=== PATIENT | male | born 2000 | race Caucasian/White ===

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

== ENCOUNTER 2021-03-12 12:33 | Emergency (ER) | payer OTHER ==
[2021-03-12 13:09] VITALS: BP 145/88; PULSE 81; RESP 18; TEMP 99.4
--- NOTE | 2021-03-12 14:13 | ED ---
URI HPI - General Chief Complaint: Upper Respiratory Infection Stated Complaint: fever, nausea Time Seen by Provider: 03/12/21 14:06 Source: patient, RN notes reviewed Mode of arrival: ambulatory Limitations: no limitations - History of Present Illness Initial Comments: Patient is a 20-year-old male that presents to the emergency department complaining of upper respiratory tract symptoms for the past several days. He notes he came to the ER to get Covid test. He was otherwise well-appearing. He denied any issues or complaints. He denied chest pain first breath headache vomiting diarrhea constipation fever fatigue chills. - Related Data Home Medications Medication Instructions Recorded Confirmed Ibuprofen [Motrin Ib] 400 mg PO Q6H PRN 11/29/17 11/29/17 Naproxen Sodium [Aleve] 220 mg PO DAILY 11/29/17 11/29/17 Previous Rx's Medication Instructions Recorded Penicillin V Potassium [Pen Vee K] 500 mg PO BID 10 Days #20 tablet 11/29/17 Allergies Allergy/AdvReac Type Severity Reaction Status Date / Time No Known Allergies Allergy Verified 03/12/21 13:06 Review of Systems ROS Statement: Those systems with pertinent positive or pertinent negative responses have been documented in the HPI. ROS Other: All systems not noted in ROS Statement are negative. Past Medical History Past Medical History: No Reported History History of Any Multi-Drug Resistant Organisms: None Reported Past Surgical History: No Surgical Hx Reported Additional Past Surgical History / Comment(s): benign cyst removal Past Psychological History: No Psychological Hx Reported Smoking Status: Never smoker Past Alcohol Use History: None Reported Past Drug Use History: Marijuana General Exam Limitations: no limitations General appearance: alert, in no apparent distress Head exam: Present: atraumatic, normocephalic, normal inspection Eye exam: Present: normal appearance, PERRL, EOMI. Absent: scleral icterus, conjunctival injection, periorbital swelling ENT exam: Present: normal exam, mucous membranes moist Neck exam: Present: normal inspection Respiratory exam: Present: normal lung sounds bilaterally. Absent: respiratory distress, wheezes, rales, rhonchi, stridor Cardiovascular Exam: Present: regular rate, normal rhythm, normal heart sounds. Absent: systolic murmur, diastolic murmur, rubs, gallop, clicks GI/Abdominal exam: Present: soft, normal bowel sounds. Absent: distended, tenderness, guarding, rebound, rigid Extremities exam: Present: normal inspection, full ROM, normal capillary refill. Absent: tenderness, pedal edema, joint swelling, calf tenderness Neurological exam: Present: alert, oriented X3 Psychiatric exam: Present: normal affect, normal mood Skin exam: Present: warm, dry, intact, normal color. Absent: rash Course Vital Signs 03/12/21 13:06 Temperature 99.4 F Pulse Rate 81 Respiratory 18 Rate Blood Pressure 145/88 O2 Sat by Pulse 98 Oximetry Medical Decision Making - Medical Decision Making 20-year-old male with upper respiratory tract symptoms for 2 days. Covid test ordered and is positive. Patient did not meet criteria for monoclonal antibodies. Patient is a discharge home with conservative management. Case discussed with Dr. Sigala. - Lab Data Lab Results 03/12/21 Range/Units 13:11 Coronavirus (PCR) Detected A (Not Detectd) Disposition Clinical Impression: COVID Disposition: HOME SELF-CARE Condition: Stable Instructions (If sedation given, give patient instructions): Coronavirus Disease 2019 (COVID-19) Additional Instructions: Please return to the Emergency Department if symptoms worsen or any other concerns. Is patient prescribed a controlled substance at d/c from ED?: No Referrals: Pérez Garcia MD [Primary Care Provider] - 1-2 days Time of Disposition: 14:13
== END 2021-03-12 14:17 | disposition home or self-care (01) ==
LOC: EC 12:33
DX: U07.1 COVID-19 (principal); Z79.1 Long term (current) use of non-steroidal anti-inflammatories (NSAID)
CPT/HCPCS: 87635; 99283

== ENCOUNTER 2021-09-01 13:17 | Emergency (ER) | payer OTHER ==
[2021-09-01 16:17] LABS: HCT 43.9 % (39.0-53.0); HGB 14.3 gm/dL (13.0-17.5); MCH 26.5 pg (25.0-35.0); MCHC 32.6 g/dL (31.0-37.0); MCV 81.5 fL (80.0-100.0); Mean Platelet Volume 7.3; Platelet Count 268 k/uL (150-450); RBC 5.38 m/uL (4.30-5.90); RDW 12.6 % (11.5-15.5); WBC 9.8 k/uL (4.0-11.0)
[2021-09-01] MEDS ORDERED: ONDANSETRON ODT 4 MG TAB PO STA (16:18)
--- NOTE | 2021-09-01 16:22 | ED ---
Nausea/Vomiting/Diarrhea HPI - General Chief complaint: Nausea/Vomiting/Diarrhea Stated complaint: Possible Food Poisoning Time Seen by Provider: 09/01/21 16:10 Source: patient, RN notes reviewed Mode of arrival: ambulatory - History of Present Illness Initial comments: This is a 20-year-old male who presents to the emergency department for nausea, vomiting, and diarrhea. Patient states that this morning, he threw up once after drinking water. He has not thrown up since, states that he believes this is because he has not had anything to eat or drink. He has had multiple e pisodes of diarrhea, states that this started out with loose stools and is now purely liquid. Denies any recent antibiotic use. He has not eaten anything different or new. States "I think I have salmonella". States that several years ago he ate some bad chicken and had similar symptoms for 3-4 days. He did not receive an official diagnosis of salmonella or treatment at that time. Denies any sick contacts. One week ago he had upper respiratory symptoms with a cough, congestion, and fevers. He did not test positive for COVID at that time, however he does continue to have a sore throat. Denies any fevers, chills, cough, dyspnea, chest pain, palpitations, back pain, or headaches. MD complaint: nausea, vomiting, diarrhea Description of Vomiting: food contents Description of Diarrhea: water Associated Abdominal Pain: Yes Location: diffuse Quality: cramping - Related Data Home Medications Medication Instructions Recorded Confirmed Ibuprofen [Motrin Ib] 400 mg PO Q6H PRN 11/29/17 11/29/17 Naproxen Sodium [Aleve] 220 mg PO DAILY 11/29/17 11/29/17 Previous Rx's Medication Instructions Recorded Penicillin V Potassium [Pen Vee K] 500 mg PO BID 10 Days #20 tablet 11/29/17 Nirmatrelvir/Ritonavir [Paxlovid 1 each PO BID 5 Days #10 tab 09/01/21 2X150 mg-100 mg (Eua)] Ondansetron Odt [Zofran Odt] 4 mg PO Q8HR PRN #15 tab 09/01/21 Oseltamivir Phosphate 75 mg PO BID 5 Days #10 capsule 09/01/21 Allergies Allergy/AdvReac Type Severity Reaction Status Date / Time No Known Allergies Allergy Verified 09/01/21 14:46 Review of Systems ROS Statement: Those systems with pertinent positive or pertinent negative responses have been documented in the HPI. ROS Other: All systems not noted in ROS Statement are negative. Past Medical History Past Medical History: No Reported History History of Any Multi-Drug Resistant Organisms: None Reported Past Surgical History: No Surgical Hx Reported Additional Past Surgical History / Comment(s): benign cyst removal Past Psychological History: No Psychological Hx Reported Smoking Status: Never smoker Past Alcohol Use History: None Reported Past Drug Use History: Marijuana General Exam General appearance: alert, in no apparent distress Head exam: Present: atraumatic, normocephalic, normal inspection Respiratory exam: Present: normal lung sounds bilaterally. Absent: respiratory distress, wheezes, rales, rhonchi, stridor Cardiovascular Exam: Present: regular rate, normal rhythm, normal heart sounds. Absent: systolic murmur, diastolic murmur, rubs, gallop, clicks GI/Abdominal exam: Present: soft, normal bowel sounds. Absent: distended, tenderness, guarding, rebound, rigid Neurological exam: Present: alert, oriented X3, CN II-XII intact Psychiatric exam: Present: normal affect, normal mood Skin exam: Present: warm, dry, intact, normal color. Absent: rash Course Vital Signs 09/01/21 09/01/21 14:42 16:24 Temperature 98.5 F 98.6 F Pulse Rate 82 55 L Respiratory 18 16 Rate Blood Pressure 123/74 123/82 O2 Sat by Pulse 100 100 Oximetry Medical Decision Making - Medical Decision Making This is a 20-year-old male who presents to the emergency department for nausea, vomiting, and diarrhea. Lab work was nonactionable. Patient tested positive for both COVID and influenza, which are likely contributing to his symptoms. The patient was given Zofran in the emergency department and was able to eat Jell-O and drink water without incident. Given that he had the upper respiratory symptoms a week ago and is now experiencing gastrointestinal symptoms, it is unclear when the COVID and flu may have started and which occurred first. Instructed him to quarantine for 5 days and practice extra precautions for an additional 5 days, including always wearing a mask around others and avoiding travel. Prescription for Tamiflu, Paxlovid, and Zofran prescribed. Return precautions reviewed in depth, the patient is instructed to return to the emergency department with any new, worsening, or concerning symptoms. Patient verbalized understanding. This case was discussed in detail with the attending ED physician. Presentation, findings, and treatment plan discussed in detail as well. - Lab Data Result diagrams: 09/01/21 16:04 09/01/21 16:04 Lab Results 09/01/21 09/01/21 09/01/21 Range/Units 16:04 16:04 16:04 WBC 9.8 (4.0-11.0) k/uL RBC 5.38 (4.30-5.90) m/uL Hgb 14.3 (13.0-17.5) gm/dL Hct 43.9 (39.0-53.0) % MCV 81.5 (80.0-100.0) fL MCH 26.5 (25.0-35.0) pg MCHC 32.6 (31.0-37.0) g/dL RDW 12.6 (11.5-15.5) % Plt Count 268 (150-450) k/uL MPV 7.3 Sodium 139 (137-145) mmol/L Potassium 4.3 (3.5-5.1) mmol/L Chloride 104 (98-107) mmol/L Carbon Dioxide 27 (22-30) mmol/L Anion Gap 8 mmol/L BUN 16 (9-20) mg/dL Creatinine 0.94 (0.66-1.25) mg/dL Est GFR (CKD-EPI)AfAm >90 (>60 ml/min/1.73 sqM) Est GFR (CKD-EPI)NonAf >90 (>60 ml/min/1.73 sqM) Glucose 99 (74-99) mg/dL Calcium 9.7 (8.4-10.2) mg/dL Total Bilirubin 0.8 (0.2-1.3) mg/dL AST 26 (17-59) U/L ALT 24 (4-49) U/L Alkaline Phosphatase 108 (38-126) U/L Total Protein 7.9 (6.3-8.2) g/dL Albumin 4.8 (3.5-5.0) g/dL Amylase 67 (30-110) U/L Lipase 66 (23-300) U/L Coronavirus (PCR) (Not Detectd) Influenza Type A RNA Detected H (Not Detectd) Influenza Type B (PCR) Detected H (Not Detectd) 09/01/21 Range/Units 16:04 WBC (4.0-11.0) k/uL RBC (4.30-5.90) m/uL Hgb (13.0-17.5) gm/dL Hct (39.0-53.0) % MCV (80.0-100.0) fL MCH (25.0-35.0) pg MCHC (31.0-37.0) g/dL RDW (11.5-15.5) % Plt Count (150-450) k/uL MPV Sodium (137-145) mmol/L Potassium (3.5-5.1) mmol/L Chloride (98-107) mmol/L Carbon Dioxide (22-30) mmol/L Anion Gap mmol/L BUN (9-20) mg/dL Creatinine (0.66-1.25) mg/dL Est GFR (CKD-EPI)AfAm (>60 ml/min/1.73 sqM) Est GFR (CKD-EPI)NonAf (>60 ml/min/1.73 sqM) Glucose (74-99) mg/dL Calcium (8.4-10.2) mg/dL Total Bilirubin (0.2-1.3) mg/dL AST (17-59) U/L ALT (4-49) U/L Alkaline Phosphatase (38-126) U/L Total Protein (6.3-8.2) g/dL Albumin (3.5-5.0) g/dL Amylase (30-110) U/L Lipase (23-300) U/L Coronavirus (PCR) Detected A (Not Detectd) Influenza Type A RNA (Not Detectd) Influenza Type B (PCR) (Not Detectd) Disposition Clinical Impression: Gastroenteritis, COVID-19, Influenza Disposition: HOME SELF-CARE Instructions (If sedation given, give patient instructions): Influenza (ED), Acute Nausea and Vomiting (ED), Acute Diarrhea (ED), How to Recover from COVID-19 at Home (ED) Additional Instructions: Return to the emergency department with any new, worsening, or concerning symptoms. Take the Zofran as needed up to every 8 hours for nausea and vomiting. Slowly advance your diet as tolerated. Take the Tamiflu and Paxlovid as prescribed for 5 days. Take Tylenol and Ibuprofen as needed for pain and fevers. Prescriptions: Oseltamivir Phosphate 75 mg PO BID 5 Days #10 capsule Nirmatrelvir/Ritonavir [Paxlovid 2X150 mg-100 mg (Eua)] 1 each PO BID 5 Days #10 tab Ondansetron Odt [Zofran Odt] 4 mg PO Q8HR PRN #15 tab PRN Reason: Nausea And Vomiting Is patient prescribed a controlled substance at d/c from ED?: No Referrals: Pérez Garcia MD [Primary Care Provider] - 1-2 days
[2021-09-01 16:24] VITALS: BP 123/82; PULSE 55; RESP 16; TEMP 98.6
[2021-09-01 16:31] LABS: ALT 24 U/L (4-49); AST 26 U/L (17-59); African American GFR (CKD) >90 (>60 ml/min/1.73 sqM); Albumin 4.8 g/dL (3.5-5.0); Alkaline Phosphatase 108 U/L (38-126); Amylase 67 U/L (30-110); Anion Gap 8 mmol/L; Blood Urea Nitrogen 16 mg/dL (9-20); Calcium 9.7 mg/dL (8.4-10.2); Carbon Dioxide 27 mmol/L (22-30); Chloride 104 mmol/L (98-107); Glucose 99 mg/dL (74-99); Lipase 66 U/L (23-300); Non-African American GFR(CKD) >90 (>60 ml/min/1.73 sqM); Potassium 4.3 mmol/L (3.5-5.1); Sodium 139 mmol/L (137-145); Total Bilirubin 0.8 mg/dL (0.2-1.3); Total Protein 7.9 g/dL (6.3-8.2)
== END 2021-09-01 17:41 | disposition home or self-care (01) ==
LOC: EC 13:17
DX: U07.1 COVID-19 (principal); K52.9 Noninfective gastroenteritis and colitis, unspecified
CPT/HCPCS: 36415; 80053; 82150; 83690; 85027; 87502; 87635

== ENCOUNTER 2022-08-12 22:59 | Emergency (ER) | payer OTHER ==
[2022-08-12 23:05] VITALS: TEMP 98.7
[2022-08-12] MEDS ORDERED: IBUPROFEN 400 MG TAB PO STA (23:21)
--- NOTE | 2022-08-13 01:02 | XR ---
EXAM: XR Mandible Complete, 4 or More Views CLINICAL HISTORY: L mandible pain TECHNIQUE: Frontal, oblique and lateral views of the mandible. COMPARISON: No relevant prior studies available. FINDINGS: Dental: No acute findings. Bones/joints: Unremarkable. No acute fracture. No dislocation. Soft tissues: Unremarkable. IMPRESSION: No acute abnormality.
[2022-08-13] MEDS ORDERED: PENICILLIN VK 500MG STARTER 4 TAB BTL PO STA (01:13)
[2022-08-13] MEDS ORDERED: ACET/COD 300 MG/30 MG STARTER PACK 6 TAB BTL PO STA (01:13)
--- NOTE | 2022-08-13 01:13 | ED ---
ENT HPI - General Chief complaint: ENT Stated complaint: Jaw Pain, Neck Pain Time Seen by Provider: 08/12/22 23:13 Source: patient Mode of arrival: ambulatory Limitations: no limitations - History of Present Illness Initial comments: This patient is a 21-year-old man who presents to evaluation of the angle of his mandible. Patient states she has been having some intermittent pains going back a number days, worse tonight. Patient states it's worse when he bites down. He has not noted fever or chills. No trauma. No difficulty with speech or swall owing. No dyspnea. He has not noted any swelling MD complaint: other -: days(s) Location: other Severity: moderate Quality: aching Consistency: constant Worsens with: other (Palpation) - Related Data Home Medications Medication Instructions Recorded Confirmed Ibuprofen [Motrin Ib] 400 mg PO Q6H PRN 11/29/17 11/29/17 Naproxen Sodium [Aleve] 220 mg PO DAILY 11/29/17 11/29/17 Previous Rx's Medication Instructions Recorded Penicillin V Potassium [Pen Vee K] 500 mg PO BID 10 Days #20 tablet 11/29/17 Nirmatrelvir/Ritonavir [Paxlovid 1 each PO BID 5 Days #10 tab 09/01/21 2X150 mg-100 mg (Eua)] Ondansetron Odt [Zofran Odt] 4 mg PO Q8HR PRN #15 tab 09/01/21 Oseltamivir Phosphate 75 mg PO BID 5 Days #10 capsule 09/01/21 Ibuprofen [Motrin] 600 mg PO Q8HR PRN #20 tab 08/13/22 Penicillin V Potassium [Pen Vee K] 500 mg PO QID #28 tab 08/13/22 Allergies Allergy/AdvReac Type Severity Reaction Status Date / Time No Known Allergies Allergy Verified 08/12/22 23:03 Review of Systems ROS Statement: Those systems with pertinent positive or pertinent negative responses have been documented in the HPI. ROS Other: All systems not noted in ROS Statement are negative. Constitutional: Denies: fever, chills Eyes: Denies: eye pain, vision change ENT: Denies: ear pain, throat pain, congestion Respiratory: Denies: cough, dyspnea, stridor Skin: Denies: rash Neurological: Denies: headache, weakness Past Medical History Past Medical History: No Reported History History of Any Multi-Drug Resistant Organisms: None Reported Past Surgical History: No Surgical Hx Reported Additional Past Surgical History / Comment(s): benign cyst removal Past Psychological History: No Psychological Hx Reported Smoking Status: Never smoker Past Alcohol Use History: None Reported Past Drug Use History: Marijuana General Exam Limitations: no limitations General appearance: alert, in no apparent distress Head exam: Present: atraumatic, normocephalic Eye exam: Present: normal appearance, PERRL, EOMI. Absent: scleral icterus, conjunctival injection ENT exam: Present: normal oropharynx, mucous membranes moist, TM's normal bilaterally, normal external ear exam, other (There is some minimal tenderness with palpation of left posterior molars 17,18. The exam is otherwise normal. No abnormal erythema, swelling, drainage.) Neck exam: Present: normal inspection, full ROM. Absent: tenderness, meningismus, lymphadenopathy Respiratory exam: Present: normal lung sounds bilaterally. Absent: respiratory distress, wheezes, rales, rhonchi Cardiovascular Exam: Present: regular rate, normal rhythm, normal heart sounds. Absent: systolic murmur, diastolic murmur, rubs, gallop Neurological exam: Present: alert Skin exam: Present: warm, dry, intact, normal color. Absent: rash Course Vital Signs 08/12/22 08/13/22 23:03 01:43 Temperature 98.7 F Pulse Rate 75 69 Respiratory 16 14 Rate Blood Pressure 124/73 119/75 O2 Sat by Pulse 98 97 Oximetry Medical Decision Making - Medical Decision Making The patient did have mandible x-ray which I interpreted to show possible developing impaction of molar. Patient is 21-year-old man here with pain to left mandible. No evidence of acute infection. This does appear to be developing impaction of the tooth. The patient directed to follow up with oral surgeon. The patient given prescription for antibiotic to use should any swelling, erythema, warmth, fever develop. Discussed appropriate further care and follow-up. Was pt. sent in by a medical professional or institution (, PA, EMTS, urgent care, hospital, or fci...) When possible be specific @ -[No] Did you speak to anyone other than the patient for history (EMS, parent, family, police, friend...)? What history was obtained from this source @ -[No] Did you review nursing and triage notes (agree or disagree)? Why? @ -[I reviewed and agree with nursing and triage notes] Were old charts reviewed (outside hosp., previous admission, EMS record, old E KG, old radiological studies, urgent care reports/EKG's, fci records)? Report findings @ -[No old charts were reviewed] Differential Diagnosis (chest pain, altered mental status, abdominal pain women, abdominal pain men, vaginal bleeding, weakness, fever, dyspnea, syncope, headache, dizziness, GI bleed, back pain, seizure, CVA, palpatations, mental h ealth, musculoskeletal)? @ -[Differential for left mandibular pain is broad and includes TMJ, dental infection, tooth impaction, bony trauma, parotid gland pathology, amongst other conditions EKG interpreted by me (3pts min.). @ -[ X-rays interpreted by me (1pt min.). @ -[As above CT interpreted by me (1pt min.). @ -[None done] U/S interpreted by me (1pt. min.). @ -[None done] What testing was considered but not performed or refused? (CT, X-rays, U/S, labs)? Why? @ -[No physical findings pointing towards need for computed tomography scan at this point, patient to follow-up or return if any change necessitating further imaging What meds were considered but not given or refused? Why? @ -[None] Did you discuss the management of the patient with other professionals (professionals i.e. , PA, EMTS, lab, RT, psych nurse, social science analyst, tail board man, teacher, consular officer, casey saw operator)? Give summary @ -[No] Was smoking cessation discussed for >3mins.? @ -[No] Was critical care preformed (if so, how long)? @ -[No] Were there social determinants of health that impacted care today? How? (Homelessness, low income, unemployed, alcoholism, drug addiction, transportation, low edu. Level, literacy, decrease access to med. care, residential, rehab)? @ -[No] Was there de-escalation of care discussed even if they declined (Discuss DNR or withdrawal of care, Hospice)? DNR status @ -[No] What co-morbidities impacted this encounter? (DM, HTN, Smoking, COPD, CAD, Cancer, CVA, ARF, Chemo, Hep., AIDS, mental health diagnosis, sleep apnea, morbid obesity)? @ -[None] Was patient admitted / discharged? Hospital course, mention meds given and route, prescriptions, significant lab abnormalities, going to OR and other pertinent info. @ -[discharged to follow-up with oral surgeon Undiagnosed new problem with uncertain prognosis? @ -[No] Drug Therapy requiring intensive monitoring for toxicity (Heparin, Nitro, Insulin, Cardizem)? @ -[No] Were any procedures done? @ -[No] Diagnosis/symptom? @ -[Left mandibular pain, probable tooth impaction Acute, or Chronic, or Acute on Chronic? @ -[aCute Uncomplicated (without systemic symptoms) or Complicated (systemic symptoms)? @ -[Complicated Side effects of treatment? @ -[No] Exacerbation, Progression, or Severe Exacerbation? @ -[No] Poses a threat to life or bodily function? How? (Chest pain, [place], [place], pneumonia, PE, COPD, DKA, ARF, appy, cholecystitis, CVA, Diverticulitis, Homicidal, Suicidal, threat to staff... and all critical care pts) @ -[No] Disposition Clinical Impression: Mandible pain Disposition: HOME SELF-CARE Condition: Good Instructions (If sedation given, give patient instructions): Temporomandibular Disorder (ED) Prescriptions: Ibuprofen [Motrin] 600 mg PO Q8HR PRN #20 tab PRN Reason: Pain Penicillin V Potassium [Pen Vee K] 500 mg PO QID #28 tab Is patient prescribed a controlled substance at d/c from ED?: No Referrals: Nonstaff,Physician [REFERRING] - 1-2 days Trell Jade DDS [STAFF PHYSICIAN] - 1-2 days
[2022-08-13 01:44] VITALS: BP 119/75; PULSE 69; RESP 14
== END 2022-08-13 01:43 | disposition home or self-care (01) ==
LOC: EC 22:59
DX: R68.84 Jaw pain (principal); F12.90 Cannabis use, unspecified, uncomplicated
CPT/HCPCS: 70110; 99283